=== PATIENT | female | born 1955 | race Caucasian/White ===

== ENCOUNTER → 2017-05-18 | Outpatient (CLI) | payer MEDICAID ==
[~2017-05-18] MED LIST: ALBU90AE INH; DIPH25CA61 PO; DIVA250T4 PO; GADOBUTROL 10 MMOL/10 ML VIAL ONE; LORA10TA72 PO; OXYB5TAB7 PO; SULF1TAB24 PO
== END | disposition home or self-care (01) ==
LOC: CFH 07:05
PROVIDERS: ATTEND Urology
DX: N28.1 Cyst of kidney, acquired (principal); C67.9 Malignant neoplasm of bladder, unspecified
CPT/HCPCS: 72197; 74183; A9585

== ENCOUNTER 2017-09-28 16:17 | Inpatient (IN) | payer MEDICAID ==
[~2017-09-28] VITALS: Ht 162.6 cm; Wt 75.0 kg
[~2017-09-28 16:17] MED LIST changes: -GADOBUTROL 10 MMOL/10 ML VIAL ONE
[2017-09-28] MEDS ORDERED: SODIUM CHLORIDE 0.9% 1,000ML IVBOLUS ONE (17:00)
[2017-09-28 17:04] LABS: BASOPHILS # (AUTO) 0.05 x10^3/uL (0-0.1); BASOPHILS % (AUTO) 1 % (0-1); EOSINOPHILS # (AUTO) 0.06 x10^3/uL (0-0.4); EOSINOPHILS % (AUTO) 1 % (1-7); LYMPHOCYTES % (AUTO) 20 % (22-44); MD NO; MEAN CORPUSCULAR HEMOGLOBIN 31.8 pg (27.0-34.8); MEAN CORPUSCULAR HGB CONC 33.5 g/dL (32.4-35.8); MEAN PLATELET VOLUME 8.8 fL (7.4-10.4); MONOCYTES # (AUTO) 0.62 x10^3/uL (0.2-0.8); MONOCYTES % (AUTO) 5 % (2-9); NEUTROPHILS # (AUTO) 8.59 x10^3/uL (1.8-6.8); NEUTROPHILS % (AUTO) 74 % (42-75); PLATELET COUNT 352 x10^3/uL (130-400); RED BLOOD COUNT 4.15 x10^6/uL (3.82-5.3); RED CELL DISTRIBUTION WIDTH 14.4 % (9.6-15.2)
[2017-09-28] MEDS ORDERED: MULT-516 PO (17:10)
[2017-09-28] MEDS ORDERED: QUET200T4 PO (17:10)
[2017-09-28] MEDS ORDERED: DIVA500T4 PO (17:10)
[2017-09-28] MEDS ORDERED: ARIP400S3 IM (17:10)
[2017-09-28] MEDS ORDERED: CHOL100012 PO (17:10)
[2017-09-28] MEDS ORDERED: FLUT1DIS3 INH (17:10)
[2017-09-28 17:13] LABS: ALANINE AMINOTRANSFERASE 24 U/L (12-78); ALBUMIN 3.5 g/dL (3.4-5.0); ANION GAP 9 mmol/L (5-15); CALCIUM 8.9 mg/dL (8.5-10.1); CHLORIDE 106 mmol/L (98-107); SALICYLATE LEVEL 6.4 mg/dL (2.8-20.0)
[2017-09-28 17:17] LABS: ALKALINE PHOSPHATASE 63 U/L (45-117); BILIRUBIN,TOTAL 0.3 mg/dL (0.2-1.0); TOTAL PROTEIN 7.1 g/dL (6.4-8.2)
[2017-09-28 17:21] LABS: ACETAMINOPHEN < 2 mcg/mL (10-30)
[2017-09-28 17:28] LABS: AMPHETAMINE SCREEN, URINE Negative (Negative); BARBITURATE SCREEN, URINE Negative (Negative); BENZODIAZEPINE SCREEN, URINE Negative (Negative); CANNABINOID SCREEN, URINE Negative (Negative); COCAINE SCREEN, URINE Negative (Negative); METHADONE SCREEN, URINE Negative (Negative); OPIATE SCREEN, URINE Negative (Negative)
[2017-09-28] MEDS ORDERED: POTASSIUM CHLORIDE 20 MEQ TAB.ER.PRT PO ONE (17:30)
[2017-09-28] MEDS ORDERED: POTASSIUM CHLORIDE 20 MEQ TAB.ER.PRT ONE (17:57)
[2017-09-28] MEDS ORDERED: MAGNESIUM SULFATE PMX 2GM/50ML 50 ML IV ONE (18:00)
[2017-09-28] MEDS ORDERED: POTASSIUM CHLORIDE 40 MEQ in SODIUM CHLORIDE 0.9% 500 ML IV ONE (18:00)
[2017-09-28 21:20] VITALS: BP 125/76
[2017-09-28] MEDS: POTASSIUM CHLORIDE 20 MEQ TAB.ER.PRT PO SCH (22:06)
[2017-09-28] MEDS: TRAZODONE 100MG TABLET PO SCH (22:06)
[2017-09-29 01:19] VITALS: BP 101/66
[2017-09-29] MEDS: POTASSIUM CHLORIDE 20 MEQ TAB.ER.PRT PO SCH (01:50)
[2017-09-29 07:13] LABS: ANION GAP 6 mmol/L (5-15); CALCIUM 8.1 mg/dL (8.5-10.1); CHLORIDE 114 mmol/L (98-107); CREATININE 0.65 mg/dL (0.55-1.02)
[2017-09-29 07:27] VITALS: BP 116/76
[2017-09-29 12:02] VITALS: BP 132/84
[2017-09-29 18:30] VITALS: BP 129/84
[2017-09-29] MEDS: TRAZODONE 100MG TABLET PO SCH (20:58)
[2017-09-29 22:20] VITALS: BP 154/91
[2017-09-29 22:21] VITALS: BP 154/91
[2017-09-29] MEDS: QUETIAPINE 200 MG TABLET PO SCH (22:51)
[2017-09-29] MEDS: DIVALPROEX 500 MG TAB.ER.24H PO SCH (22:51)
[2017-09-30 07:57] VITALS: BP 135/83
[2017-09-30] MEDS: NICOTINE 14MG/24 HR PATCH.TD24 TD SCH (17:00)
[2017-09-30 19:46] VITALS: BP 163/94
[2017-09-30] MEDS: ACETAMINOPHEN 325 MG TABLET PO PRN (20:00)
[2017-09-30] MEDS: QUETIAPINE 200 MG TABLET PO SCH (20:01)
[2017-09-30] MEDS: TRAZODONE 100MG TABLET PO SCH ×2 (20:01→20:03)
[2017-09-30] MEDS: DIVALPROEX 500 MG TAB.ER.24H PO SCH (20:02)
[2017-09-30 20:14] VITALS: BP 157/85
[2017-10-01 07:34] VITALS: BP 155/96
[2017-10-01] MEDS: NICOTINE 14MG/24 HR PATCH.TD24 TD SCH (17:15)
[2017-10-01 20:16] VITALS: BP 174/94
[2017-10-01] MEDS: TRAZODONE 100MG TABLET PO SCH (20:33)
[2017-10-01] MEDS: QUETIAPINE 200 MG TABLET PO SCH (20:34)
[2017-10-01] MEDS: DIVALPROEX 500 MG TAB.ER.24H PO SCH (20:34)
[2017-10-01 20:43] VITALS: BP 158/90
[2017-10-02] MEDS: ACETAMINOPHEN 325 MG TABLET PO PRN (01:48)
[2017-10-02 07:53] VITALS: BP 132/83
[2017-10-02] MEDS: GUAIFENESIN/DM 200-20MG, 10ML UDC PO PRN ×2 (12:24→20:25)
[2017-10-02] MEDS: LORazepam 0.5MG TABLET PO PRN ×2 (15:22→21:32)
[2017-10-02] MEDS: BENZONATATE 100 MG CAPSULE PO PRN (15:23)
[2017-10-02] MEDS: NICOTINE 14MG/24 HR PATCH.TD24 TD SCH (17:16)
[2017-10-02 19:26] VITALS: BP 148/86
[2017-10-02] MEDS: TRAZODONE 100MG TABLET PO SCH (20:25)
[2017-10-02] MEDS: QUETIAPINE 200 MG TABLET PO SCH (20:25)
[2017-10-02] MEDS: DIVALPROEX 500 MG TAB.ER.24H PO SCH (20:25)
[2017-10-03 08:50] VITALS: BP 132/79
[2017-10-03] MEDS: GUAIFENESIN/DM 200-20MG, 10ML UDC PO PRN ×2 (10:02→22:56)
[2017-10-03] MEDS: ONDANSETRON ODT 4 MG PO PRN ×3 (11:21→21:53)
[2017-10-03] MEDS: ACETAMINOPHEN 325 MG TABLET PO PRN ×2 (16:11→21:16)
[2017-10-03] MEDS: NICOTINE 14MG/24 HR PATCH.TD24 TD SCH (16:47)
[2017-10-03 19:37] VITALS: BP 168/100
[2017-10-03] MEDS: TRAZODONE 100MG TABLET PO SCH (21:16)
[2017-10-03] MEDS: QUETIAPINE 200 MG TABLET PO SCH (21:16)
[2017-10-03] MEDS: DIVALPROEX 500 MG TAB.ER.24H PO SCH (21:17)
[2017-10-03] MEDS: LORazepam 0.5MG TABLET PO PRN (22:56)
[2017-10-04 07:40] VITALS: BP 127/89
[2017-10-04] MEDS: LORazepam 0.5MG TABLET PO PRN ×2 (12:36→16:51)
[2017-10-04] MEDS: GUAIFENESIN/DM 200-20MG, 10ML UDC PO PRN ×2 (12:36→21:39)
[2017-10-04] MEDS: NICOTINE 14MG/24 HR PATCH.TD24 TD SCH (16:51)
[2017-10-04 20:17] VITALS: BP 159/83
[2017-10-04] MEDS: TRAZODONE 100MG TABLET PO SCH (21:38)
[2017-10-04] MEDS: QUETIAPINE 200 MG TABLET PO SCH (21:38)
[2017-10-04] MEDS: DIVALPROEX 500 MG TAB.ER.24H PO SCH (21:38)
[2017-10-05 07:16] VITALS: BP 130/79
[2017-10-05] MEDS: IBUPROFEN 200 MG TABLET PO PRN ×3 (07:54→17:26)
[2017-10-05] MEDS: GUAIFENESIN/DM 200-20MG, 10ML UDC PO PRN ×2 (09:02→20:45)
[2017-10-05] MEDS: BENZONATATE 100 MG CAPSULE PO PRN ×2 (09:02→18:27)
[2017-10-05] MEDS: LORazepam 0.5MG TABLET PO PRN ×2 (09:09→18:16)
[2017-10-05] MEDS: NICOTINE 14MG/24 HR PATCH.TD24 TD SCH (17:00)
[2017-10-05] MEDS: ONDANSETRON ODT 4 MG PO PRN (18:27)
[2017-10-05 19:02] VITALS: BP 158/84
[2017-10-05] MEDS: DIVALPROEX 500 MG TAB.ER.24H PO SCH (20:45)
[2017-10-05] MEDS: QUETIAPINE 200 MG TABLET PO SCH (20:45)
[2017-10-05] MEDS: TRAZODONE 100MG TABLET PO SCH (20:45)
[2017-10-06] MEDS: IBUPROFEN 200 MG TABLET PO PRN ×2 (01:42→08:26)
[2017-10-06] MEDS: LORazepam 0.5MG TABLET PO PRN ×4 (01:42→22:17)
[2017-10-06 07:31] VITALS: BP 151/84
[2017-10-06] MEDS: GUAIFENESIN/DM 200-20MG, 10ML UDC PO PRN ×3 (08:26→20:09)
[2017-10-06] MEDS: NICOTINE 14MG/24 HR PATCH.TD24 TD SCH (17:30)
[2017-10-06] MEDS: ONDANSETRON ODT 4 MG PO PRN (18:08)
[2017-10-06 19:26] VITALS: BP 135/82
[2017-10-06] MEDS: DIVALPROEX 500 MG TAB.ER.24H PO SCH ×2 (20:05→21:45)
[2017-10-06] MEDS: QUETIAPINE 200 MG TABLET PO SCH (20:05)
[2017-10-06] MEDS: TRAZODONE 100MG TABLET PO SCH (20:05)
[2017-10-07] MEDS: GUAIFENESIN/DM 200-20MG, 10ML UDC PO PRN ×3 (04:17→20:02)
[2017-10-07 07:36] VITALS: BP 145/94
[2017-10-07] MEDS: ONDANSETRON ODT 4 MG PO PRN (10:40)
[2017-10-07] MEDS ORDERED: ARIPIPRAZOLE 400 MG INJ NC IM ONE (11:00)
[2017-10-07] MEDS: LORazepam 0.5MG TABLET PO PRN (13:23)
[2017-10-07] MEDS: IBUPROFEN 200 MG TABLET PO PRN ×2 (13:23→20:01)
[2017-10-07] MEDS: NICOTINE 14MG/24 HR PATCH.TD24 TD SCH (17:44)
[2017-10-07] MEDS: CARVEDILOL 3.125 MG TABLET PO SCH (18:11)
[2017-10-07 20:00] VITALS: BP 142/82
[2017-10-07] MEDS: TRAZODONE 100MG TABLET PO SCH (20:01)
[2017-10-07] MEDS: QUETIAPINE 200 MG TABLET PO SCH (20:01)
[2017-10-08 05:55] VITALS: BP 134/87
[2017-10-08] MEDS: CARVEDILOL 3.125 MG TABLET PO SCH (05:56)
[2017-10-08 07:34] VITALS: BP 158/90
[2017-10-08] MEDS: LORazepam 0.5MG TABLET PO PRN (08:02)
[2017-10-08] MEDS: GUAIFENESIN/DM 200-20MG, 10ML UDC PO PRN (08:02)
[2017-10-08] MEDS: IBUPROFEN 200 MG TABLET PO PRN (13:59)
[2017-10-08] MEDS ORDERED: CARVEDILOL 3.125 MG TABLET PO SCH (18:00)
== END 2017-10-08 15:00 | DRG 885 ==
LOC: ED 17:33 → EDIP 17:34 → ED 17:54 → 4NOR 21:00 → 3E 09-29 22:18
PROVIDERS: ADMIT Internal Medicine; ATTEND Internal Medicine
DX: F25.0 Schizoaffective disorder, bipolar type (principal); E86.0 Dehydration; F23 Brief psychotic disorder; E87.6 Hypokalemia; G47.30 Sleep apnea, unspecified; I10 Essential (primary) hypertension; J44.9 Chronic obstructive pulmonary disease, unspecified; Z88.8 Allergy status to other drugs, medicaments and biological substances; Z88.5 Allergy status to narcotic agent; Z91.041 Radiographic dye allergy status
CPT/HCPCS: 36415; 80048; 80053; 80307; 80329; 83735; 84703; 85025; 93005; 99285; J3480; Q0162; G0480; J3475; J7030; J7040

== ENCOUNTER 2017-11-12 13:25 | Observation (INO) | payer MEDICAID ==
[~2017-11-12] VITALS: Ht 170.2 cm; Wt 78.0 kg
[~2017-11-12 13:25] MED LIST changes: +ARIP400S3 IM; +CHOL100012 PO; +DIVA500T4 PO; +FLUT1DIS3 INH; +MULT-516 PO; +QUET200T4 PO
[2017-11-12 13:52] LABS: BASOPHILS # (AUTO) 0.08 x10^3/uL (0-0.1); BASOPHILS % (AUTO) 1 % (0-1); EOSINOPHILS # (AUTO) 0.34 x10^3/uL (0-0.4); EOSINOPHILS % (AUTO) 5 % (1-7); LYMPHOCYTES # (AUTO) 2.36 x10^3/uL (1-3.4); LYMPHOCYTES % (AUTO) 32 % (22-44); MD NO; MEAN CORPUSCULAR HEMOGLOBIN 32.7 pg (27.0-34.8); MEAN CORPUSCULAR HGB CONC 33.7 g/dL (32.4-35.8); MEAN CORPUSCULAR VOLUME 97.2 fL (80-100); MEAN PLATELET VOLUME 8.7 fL (7.4-10.4); MONOCYTES # (AUTO) 0.53 x10^3/uL (0.2-0.8); MONOCYTES % (AUTO) 7 % (2-9); NEUTROPHILS # (AUTO) 4.18 x10^3/uL (1.8-6.8); NEUTROPHILS % (AUTO) 56 % (42-75); PLATELET COUNT 338 x10^3/uL (130-400); RED BLOOD COUNT 3.81 x10^6/uL (3.82-5.3); RED CELL DISTRIBUTION WIDTH 15.4 % (9.6-15.2)
[2017-11-12 14:03] LABS: ALANINE AMINOTRANSFERASE 20 U/L (12-78); ALBUMIN 3.4 g/dL (3.4-5.0); ANION GAP 7 mmol/L (5-15); CALCIUM 8.2 mg/dL (8.5-10.1); CHLORIDE 109 mmol/L (98-107); SALICYLATE LEVEL 2.2 mg/dL (2.8-20.0)
[2017-11-12 14:06] LABS: ALKALINE PHOSPHATASE 60 U/L (45-117); BILIRUBIN,TOTAL 0.4 mg/dL (0.2-1.0); CREATININE 0.73 mg/dL (0.55-1.02); TOTAL PROTEIN 7.1 g/dL (6.4-8.2)
[2017-11-12 14:09] LABS: ACETAMINOPHEN < 2 mcg/mL (10-30)
[2017-11-12 14:14] LABS: AMPHETAMINE SCREEN, URINE Negative (Negative); BARBITURATE SCREEN, URINE Negative (Negative); BENZODIAZEPINE SCREEN, URINE Negative (Negative); CANNABINOID SCREEN, URINE Negative (Negative); COCAINE SCREEN, URINE Negative (Negative); METHADONE SCREEN, URINE Negative (Negative); OPIATE SCREEN, URINE Negative (Negative)
[2017-11-12] MEDS ORDERED: ZIPRASIDONE 20MG CAPSULE PO ONE (14:30)
[2017-11-12] MEDS ORDERED: ZIPRASIDONE 20MG CAPSULE ONE (14:40)
[2017-11-12] MEDS ORDERED: QUET400T4 PO (16:19)
[2017-11-12] MEDS ORDERED: QUET100T PO (16:19)
[2017-11-12] MEDS ORDERED: ALBU6.7H INH (16:19)
[2017-11-12] MEDS ORDERED: [UNRECOGNIZED DRUG - CODE] PO (16:19)
[2017-11-12] MEDS ORDERED: DIVA500T17 PO (16:19)
[2017-11-12] MEDS ORDERED: OMEP40CA6 PO (16:19)
[2017-11-12] MEDS ORDERED: CARV3.1212 PO (16:19)
[2017-11-12] MEDS ORDERED: DOCUSATE 100 MG CAPSULE PO PRN (17:00)
[2017-11-12] MEDS ORDERED: QUETIAPINE 100MG TABLET PO PRN (17:00)
[2017-11-12] MEDS: NICOTINE 7 MG/24 HR PATCH.TD24 TD SCH (17:00)
[2017-11-12] MEDS ORDERED: ALBUTEROL SULFATE 2.5 MG/3 ML NPPB SCH (17:00)
[2017-11-12] MEDS ORDERED: ONDANSETRON ODT 4 MG PO PRN (17:00)
[2017-11-12] MEDS ORDERED: ZIPRASIDONE 20 MG INJ IM PRN (18:00)
[2017-11-12] MEDS ORDERED: GUAIFENESIN ER 600 MG TABLET ONE (21:00)
[2017-11-12] MEDS: QUETIAPINE 100MG TABLET PO SCH (21:04)
[2017-11-12] MEDS: GUAIFENESIN ER 600 MG TABLET PO SCH (21:04)
[2017-11-12] MEDS: CARVEDILOL 3.125 MG TABLET PO SCH (21:04)
[2017-11-12] MEDS: DIVALPROEX 500 MG TAB.ER.24H PO SCH (21:05)
[2017-11-12] MEDS ORDERED: NICOTINE 7 MG/24 HR PATCH.TD24 ONE (21:07)
[2017-11-13] MEDS ORDERED: ALBUTEROL SULFATE 2.5 MG/3 ML NPPB PRN (01:00)
[2017-11-13 05:57] LABS: ANION GAP 3 mmol/L (5-15); CALCIUM 8.4 mg/dL (8.5-10.1); CHLORIDE 112 mmol/L (98-107); CREATININE 0.77 mg/dL (0.55-1.02)
[2017-11-13 06:08] LABS: FREE T4 (FREE THYROXINE) 0.82 ng/dL (0.76-1.46)
[2017-11-13] MEDS ORDERED: GUAIFENESIN ER 600 MG TABLET ONE ×2 (07:41→20:55)
[2017-11-13] MEDS ORDERED: OMEPRAZOLE 20 MG CAPSULE.DR ONE (07:41)
[2017-11-13] MEDS: OMEPRAZOLE 20 MG CAPSULE.DR PO SCH (07:42)
[2017-11-13] MEDS: GUAIFENESIN ER 600 MG TABLET PO SCH ×2 (07:42→21:30)
[2017-11-13] MEDS: DIVALPROEX 500 MG TAB.ER.24H PO SCH ×2 (07:42→21:30)
[2017-11-13] MEDS: CARVEDILOL 3.125 MG TABLET PO SCH ×2 (07:42→21:30)
[2017-11-13] MEDS: FLUTICASONE/VILANTEROL 100-25MCG/INH INH SCH (07:42)
[2017-11-13] MEDS ORDERED: NICOTINE 7 MG/24 HR PATCH.TD24 ONE (18:23)
[2017-11-13] MEDS: NICOTINE 7 MG/24 HR PATCH.TD24 TD SCH (18:29)
[2017-11-13] MEDS ORDERED: CARVEDILOL 3.125 MG TABLET ONE (20:55)
[2017-11-13] MEDS ORDERED: QUETIAPINE 100MG TABLET ONE (20:55)
[2017-11-13] MEDS: QUETIAPINE 100MG TABLET PO SCH (21:30)
[2017-11-14] MEDS ORDERED: GUAIFENESIN ER 600 MG TABLET ONE (07:50)
[2017-11-14] MEDS ORDERED: OMEPRAZOLE 20 MG CAPSULE.DR ONE (07:50)
[2017-11-14] MEDS ORDERED: CARVEDILOL 3.125 MG TABLET ONE (07:50)
[2017-11-14] MEDS: GUAIFENESIN ER 600 MG TABLET PO SCH ×2 (08:00→21:12)
[2017-11-14] MEDS: OMEPRAZOLE 20 MG CAPSULE.DR PO SCH (08:00)
[2017-11-14] MEDS: CARVEDILOL 3.125 MG TABLET PO SCH ×2 (08:01→21:11)
[2017-11-14] MEDS: DIVALPROEX 500 MG TAB.ER.24H PO SCH ×2 (08:04→21:11)
[2017-11-14] MEDS: FLUTICASONE/VILANTEROL 100-25MCG/INH INH SCH (08:13)
[2017-11-14 19:49] VITALS: BP 128/55
[2017-11-14] MEDS: QUETIAPINE 100MG TABLET PO SCH (21:12)
[2017-11-14] MEDS: NICOTINE 7 MG/24 HR PATCH.TD24 TD SCH (21:12)
[2017-11-15 07:50] VITALS: BP 140/82
[2017-11-15] MEDS: OMEPRAZOLE 20 MG CAPSULE.DR PO SCH (08:19)
[2017-11-15] MEDS: CARVEDILOL 3.125 MG TABLET PO SCH ×2 (08:19→21:33)
[2017-11-15] MEDS: GUAIFENESIN ER 600 MG TABLET PO SCH ×2 (08:19→21:33)
[2017-11-15] MEDS: DIVALPROEX 500 MG TAB.ER.24H PO SCH ×2 (08:19→21:32)
[2017-11-15 10:54] LABS: MICROSCOPIC INDICATED
[2017-11-15] MEDS: FLUTICASONE/VILANTEROL 100-25MCG/INH INH SCH (11:03)
[2017-11-15] MEDS: ACETAMINOPHEN 325 MG TABLET PO PRN (13:19)
[2017-11-15] MEDS: NICOTINE 7 MG/24 HR PATCH.TD24 TD SCH (16:25)
[2017-11-15 20:15] VITALS: BP 141/83
[2017-11-15] MEDS: QUETIAPINE 100MG TABLET PO SCH (21:33)
[2017-11-16 07:45] VITALS: BP 133/84
[2017-11-16] MEDS: FLUTICASONE/VILANTEROL 100-25MCG/INH INH SCH (09:44)
[2017-11-16] MEDS: CARVEDILOL 3.125 MG TABLET PO SCH ×2 (09:45→21:14)
[2017-11-16] MEDS: GUAIFENESIN ER 600 MG TABLET PO SCH ×2 (09:46→21:14)
[2017-11-16] MEDS: DIVALPROEX 500 MG TAB.ER.24H PO SCH ×3 (09:46→21:14)
[2017-11-16] MEDS: OMEPRAZOLE 20 MG CAPSULE.DR PO SCH (09:47)
[2017-11-16] MEDS: NICOTINE 7 MG/24 HR PATCH.TD24 TD SCH (16:35)
[2017-11-16 19:53] VITALS: BP 149/85
[2017-11-16] MEDS: QUETIAPINE 100MG TABLET PO SCH (21:15)
[2017-11-17] MEDS: ACETAMINOPHEN 325 MG TABLET PO PRN (05:39)
[2017-11-17 07:40] VITALS: BP 146/86
[2017-11-17] MEDS: OMEPRAZOLE 20 MG CAPSULE.DR PO SCH (08:42)
[2017-11-17] MEDS: CARVEDILOL 3.125 MG TABLET PO SCH ×2 (08:42→20:51)
[2017-11-17] MEDS: FLUTICASONE/VILANTEROL 100-25MCG/INH INH SCH (08:42)
[2017-11-17] MEDS: DIVALPROEX 500 MG TAB.ER.24H PO SCH ×3 (08:42→20:51)
[2017-11-17] MEDS: GUAIFENESIN ER 600 MG TABLET PO SCH ×2 (08:42→20:51)
[2017-11-17] MEDS: QUETIAPINE 100MG TABLET PO PRN (12:42)
[2017-11-17] MEDS: NICOTINE 7 MG/24 HR PATCH.TD24 TD SCH (17:08)
[2017-11-17 19:37] VITALS: BP 140/82
[2017-11-17] MEDS: QUETIAPINE 100MG TABLET PO SCH (20:51)
[2017-11-18] MEDS: QUETIAPINE 100MG TABLET PO PRN (04:04)
[2017-11-18 07:43] VITALS: BP 139/84
[2017-11-18 07:47] VITALS: BP 139/84
[2017-11-18] MEDS: GUAIFENESIN ER 600 MG TABLET PO SCH ×2 (08:34→21:14)
[2017-11-18] MEDS: OMEPRAZOLE 20 MG CAPSULE.DR PO SCH (08:34)
[2017-11-18] MEDS: DIVALPROEX 500 MG TAB.ER.24H PO SCH ×3 (08:34→21:15)
[2017-11-18] MEDS: CARVEDILOL 3.125 MG TABLET PO SCH ×2 (08:35→21:15)
[2017-11-18] MEDS: FLUTICASONE/VILANTEROL 100-25MCG/INH INH SCH (08:37)
[2017-11-18] MEDS: NICOTINE 7 MG/24 HR PATCH.TD24 TD SCH (16:51)
[2017-11-18 19:42] VITALS: BP 138/84
[2017-11-18] MEDS: QUETIAPINE 100MG TABLET PO SCH (21:14)
[2017-11-19 07:45] VITALS: BP 133/75
[2017-11-19] MEDS: CARVEDILOL 3.125 MG TABLET PO SCH ×2 (08:45→21:04)
[2017-11-19] MEDS: DIVALPROEX 500 MG TAB.ER.24H PO SCH ×3 (08:45→21:04)
[2017-11-19] MEDS: GUAIFENESIN ER 600 MG TABLET PO SCH ×2 (08:45→21:04)
[2017-11-19] MEDS: OMEPRAZOLE 20 MG CAPSULE.DR PO SCH (08:45)
[2017-11-19] MEDS: FLUTICASONE/VILANTEROL 100-25MCG/INH INH SCH (08:47)
[2017-11-19] MEDS: NICOTINE 7 MG/24 HR PATCH.TD24 TD SCH (16:21)
[2017-11-19 20:06] VITALS: BP 130/73
[2017-11-19] MEDS: QUETIAPINE 100MG TABLET PO SCH (21:05)
[2017-11-20 08:35] VITALS: BP 108/67
[2017-11-20] MEDS: DIVALPROEX 500 MG TAB.ER.24H PO SCH ×3 (08:52→20:25)
[2017-11-20] MEDS: GUAIFENESIN ER 600 MG TABLET PO SCH ×2 (08:52→20:25)
[2017-11-20] MEDS: FLUTICASONE/VILANTEROL 100-25MCG/INH INH SCH (08:52)
[2017-11-20] MEDS: OMEPRAZOLE 20 MG CAPSULE.DR PO SCH (08:52)
[2017-11-20] MEDS: CARVEDILOL 3.125 MG TABLET PO SCH ×2 (08:54→20:25)
[2017-11-20] MEDS: NICOTINE 7 MG/24 HR PATCH.TD24 TD SCH (17:03)
[2017-11-20 19:50] VITALS: BP 137/75
[2017-11-20] MEDS: QUETIAPINE 100MG TABLET PO SCH (20:26)
[2017-11-21 07:43] VITALS: BP 129/79
[2017-11-21] MEDS: FLUTICASONE/VILANTEROL 100-25MCG/INH INH SCH (08:26)
[2017-11-21] MEDS: DIVALPROEX 500 MG TAB.ER.24H PO SCH ×3 (08:27→20:48)
[2017-11-21] MEDS: CARVEDILOL 3.125 MG TABLET PO SCH ×2 (08:27→20:48)
[2017-11-21] MEDS: OMEPRAZOLE 20 MG CAPSULE.DR PO SCH (08:27)
[2017-11-21] MEDS: GUAIFENESIN ER 600 MG TABLET PO SCH ×2 (08:27→20:48)
[2017-11-21] MEDS: LORATADINE 10 MG TABLET PO SCH (10:56)
[2017-11-21] MEDS: NICOTINE 7 MG/24 HR PATCH.TD24 TD SCH (16:17)
[2017-11-21 19:44] VITALS: BP 119/75
[2017-11-21] MEDS: QUETIAPINE 100MG TABLET PO SCH (20:49)
[2017-11-22 07:42] VITALS: BP 137/77
[2017-11-22] MEDS: DIVALPROEX 500 MG TAB.ER.24H PO SCH ×3 (08:28→20:35)
[2017-11-22] MEDS: OMEPRAZOLE 20 MG CAPSULE.DR PO SCH (08:28)
[2017-11-22] MEDS: GUAIFENESIN ER 600 MG TABLET PO SCH ×2 (08:28→20:35)
[2017-11-22] MEDS: CARVEDILOL 3.125 MG TABLET PO SCH ×2 (08:28→20:35)
[2017-11-22] MEDS: FLUTICASONE/VILANTEROL 100-25MCG/INH INH SCH (08:28)
[2017-11-22] MEDS: LORATADINE 10 MG TABLET PO SCH (08:30)
[2017-11-22] MEDS: ARTIFICIAL TEARS OINT 3.5 GM EACHEYE PRN (12:31)
[2017-11-22] MEDS: NICOTINE 7 MG/24 HR PATCH.TD24 TD SCH (15:48)
[2017-11-22] MEDS: ACETAMINOPHEN 325 MG TABLET PO PRN (19:30)
[2017-11-22 19:41] VITALS: BP 135/86
[2017-11-22] MEDS: QUETIAPINE 100MG TABLET PO SCH (20:36)
[2017-11-23 07:38] VITALS: BP 126/81
[2017-11-23] MEDS: CARVEDILOL 3.125 MG TABLET PO SCH ×2 (08:21→20:29)
[2017-11-23] MEDS: FLUTICASONE/VILANTEROL 100-25MCG/INH INH SCH (08:21)
[2017-11-23] MEDS: DIVALPROEX 500 MG TAB.ER.24H PO SCH ×3 (08:21→20:29)
[2017-11-23] MEDS: OMEPRAZOLE 20 MG CAPSULE.DR PO SCH (08:22)
[2017-11-23] MEDS: GUAIFENESIN ER 600 MG TABLET PO SCH ×2 (08:22→20:29)
[2017-11-23] MEDS: LORATADINE 10 MG TABLET PO SCH (08:22)
[2017-11-23] MEDS: NICOTINE 7 MG/24 HR PATCH.TD24 TD SCH (16:06)
[2017-11-23] MEDS: ARTIFICIAL TEARS OINT 3.5 GM EACHEYE PRN (16:07)
[2017-11-23 19:41] VITALS: BP 147/78
[2017-11-23] MEDS: QUETIAPINE 100MG TABLET PO SCH (20:29)
[2017-11-24] MEDS: ACETAMINOPHEN 325 MG TABLET PO PRN (01:20)
[2017-11-24 07:40] VITALS: BP 125/85
[2017-11-24] MEDS: FLUTICASONE/VILANTEROL 100-25MCG/INH INH SCH (08:50)
[2017-11-24] MEDS: DIVALPROEX 500 MG TAB.ER.24H PO SCH (08:50)
[2017-11-24] MEDS: CARVEDILOL 3.125 MG TABLET PO SCH (08:51)
[2017-11-24] MEDS: LORATADINE 10 MG TABLET PO SCH (08:51)
[2017-11-24] MEDS: GUAIFENESIN ER 600 MG TABLET PO SCH (08:51)
[2017-11-24] MEDS: OMEPRAZOLE 20 MG CAPSULE.DR PO SCH (08:51)
[2017-11-24] MEDS: ARTIFICIAL TEARS OINT 3.5 GM EACHEYE PRN (09:24)
== END 2017-11-24 12:14 ==
LOC: ED 16:35 → EDIP 16:36 → ED 16:36 → 3E 11-14 17:23
PROVIDERS: ADMIT Hospitalist; ATTEND Internal Medicine
DX: F31.9 Bipolar disorder, unspecified (principal); F12.90 Cannabis use, unspecified, uncomplicated; M32.9 Systemic lupus erythematosus, unspecified; I10 Essential (primary) hypertension; J44.9 Chronic obstructive pulmonary disease, unspecified; F25.9 Schizoaffective disorder, unspecified; F17.210 Nicotine dependence, cigarettes, uncomplicated
CPT/HCPCS: 36415; 80048; 80053; 80164; 80307; 80329; 81001; 84439; 84443; 85025; 93005; 99285; G0378; G0480

== ENCOUNTER 2018-07-12 16:49 | Emergency (ER) | payer MEDICAID ==
[~2018-07-12] VITALS: Ht 162.6 cm; Wt 70.0 kg
[~2018-07-12 16:49] MED LIST changes: +ALBU6.7H INH; +CARV3.1212 PO; +DIVA500T17 PO; +OMEP40CA6 PO; +QUET100T PO; +QUET400T4 PO; +[UNRECOGNIZED DRUG - CODE] PO
[2018-07-12] MEDS ORDERED: SODIUM CHLORIDE FLUSH 10ML SYR IVF ONE (17:00)
[2018-07-12] MEDS ORDERED: PLEASE ENTER HEIGHT AND WEIGHT MC SCH (17:30)
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
[2018-07-12 17:41] LABS: BASOPHILS # (AUTO) 0.12 x10^3/uL (0-0.1); BASOPHILS % (AUTO) 1 % (0-1); EOSINOPHILS # (AUTO) 0.33 x10^3/uL (0-0.4); EOSINOPHILS % (AUTO) 3 % (1-7); LYMPHOCYTES # (AUTO) 3.24 x10^3/uL (1-3.4); LYMPHOCYTES % (AUTO) 28 % (22-44); MD NO; MEAN CORPUSCULAR HEMOGLOBIN 32.7 pg (27.0-34.8); MEAN CORPUSCULAR HGB CONC 33.6 g/dL (32.4-35.8); MEAN CORPUSCULAR VOLUME 97.3 fL (80-100); MEAN PLATELET VOLUME 9.3 fL (7.4-10.4); MONOCYTES # (AUTO) 0.65 x10^3/uL (0.2-0.8); MONOCYTES % (AUTO) 6 % (2-9); NEUTROPHILS # (AUTO) 7.19 x10^3/uL (1.8-6.8); NEUTROPHILS % (AUTO) 62 % (42-75); PLATELET COUNT 309 x10^3/uL (130-400); RED BLOOD COUNT 4.78 x10^6/uL (3.82-5.3)
[2018-07-12 17:48] LABS: ALBUMIN 3.9 g/dL (3.4-5.0); ANION GAP 6 mmol/L (5-15); CALCIUM 9.1 mg/dL (8.5-10.1); CHLORIDE 107 mmol/L (98-107)
[2018-07-12 17:53] LABS: CREATININE 0.85 mg/dL (0.55-1.02); TROPONIN I < 0.015 ng/mL (0.000-0.045)
[2018-07-12 17:54] LABS: CREATINE KINASE, TOTAL 106 U/L (26-192)
[2018-07-12] MEDS ORDERED: LORazepam 1MG TABLET ONE (18:30)
[2018-07-12] MEDS ORDERED: LORazepam 1MG TABLET PO ONE (18:30)
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
--- NOTE | 2018-07-12 18:43 | NUR ---
PT HAS REMAINED AND A/OX 4 WITHOUT DISTRESS. TOLERATING PO FLUIDS.
[2018-07-12 18:55] VITALS: BP_DIAS 87
--- NOTE | 2018-07-12 19:08 | NUR ---
SBAR RPT FROM R[facility]HAO AND ASSUMED PT CARE. PT VSS, CONTINUE TO MONITOR
[2018-07-12] MEDS ORDERED: ARIP400S3 SC (19:13)
[2018-07-12] MEDS ORDERED: DIPH25TA65 PO (19:13)
[2018-07-12 20:15] VITALS: BP_SYST 144
--- NOTE | 2018-07-12 20:16 | NUR ---
Patient/Caregiver given discharge instructions and they have confirmed that they understand the instructions. Patient ambulatory with steady gait. TAXI VOUCHER PROVIDED
== END 2018-07-12 20:17 | disposition home or self-care (01) ==
LOC: ED 16:58
DX: T75.4XXA Electrocution, initial encounter (principal); J44.9 Chronic obstructive pulmonary disease, unspecified; I10 Essential (primary) hypertension; W86.0XXA Exposure to domestic wiring and appliances, initial encounter; Y93.G3 Activity, cooking and baking; Y92.89 Other specified places as the place of occurrence of the external cause; Y99.9 Unspecified external cause status
CPT/HCPCS: 36415; 71045; 80048; 82040; 82550; 84484; 85025; 93005; 99284

== ENCOUNTER 2018-10-03 14:07 | Emergency (ER) | payer MEDICAID ==
[~2018-10-03] VITALS: Ht 162.6 cm; Wt 68.4 kg
[~2018-10-03 14:07] MED LIST changes: +ARIP400S3 SC; +DIPH25TA65 PO
[2018-10-03 14:29] VITALS: BP 161/95
--- NOTE | 2018-10-03 14:49 | NUR ---
PT PRESENTING TO ER FOR DEPRESSION WORSENING OVER 1 WK. PT STATES RECENTLY HURT ARM AND NEEDS SX, TAKING PAIN MEDICATION THAT ALSO MIGHT BE CAUSING DEPRESSION. WHEN ASKED IF SHE FELT UNSAFE OR THAT SHE MIGHT HURT SELF PT STATES NO BUT KNOWS SHE DOESNT FEEL RIGHT. PT DENIES SI AND STATES DOESNT FEEL SHE NEEDS TO BE ON A HOLD. TAKING PSYCH MEDS PRESCRIBED. LABS COLLECTED. PT CURRENTLY UP TO RESTROOM FOR SAMPLE COLLECTION. AWAITING TEST RESULTS AND DISPO AT THIS TIME
[2018-10-03 14:53] LABS: BASOPHILS # (AUTO) 0.23 x10^3/uL (0-0.1); BASOPHILS % (AUTO) 2 % (0-1); EOSINOPHILS # (AUTO) 0.33 x10^3/uL (0-0.4); EOSINOPHILS % (AUTO) 3 % (1-7); LYMPHOCYTES # (AUTO) 3.33 x10^3/uL (1-3.4); LYMPHOCYTES % (AUTO) 33 % (22-44); MD NO; MEAN CORPUSCULAR HEMOGLOBIN 31.9 pg (27.0-34.8); MEAN CORPUSCULAR HGB CONC 33.5 g/dL (32.4-35.8); MEAN CORPUSCULAR VOLUME 95.3 fL (80-100); MEAN PLATELET VOLUME 8.6 fL (7.4-10.4); MONOCYTES # (AUTO) 0.57 x10^3/uL (0.2-0.8); MONOCYTES % (AUTO) 6 % (2-9); NEUTROPHILS # (AUTO) 5.58 x10^3/uL (1.8-6.8); NEUTROPHILS % (AUTO) 56 % (42-75); PLATELET COUNT 350 x10^3/uL (130-400); RED CELL DISTRIBUTION WIDTH 14.4 % (9.6-15.2)
[2018-10-03 15:02] LABS: ALBUMIN 4.1 g/dL (3.4-5.0); ANION GAP 6 mmol/L (5-15); CALCIUM 9.4 mg/dL (8.5-10.1); CHLORIDE 107 mmol/L (98-107)
[2018-10-03 15:05] LABS: ALANINE AMINOTRANSFERASE 24 U/L (12-78); ALKALINE PHOSPHATASE 107 U/L (45-117); BILIRUBIN,TOTAL 0.4 mg/dL (0.2-1.0); CREATININE 0.73 mg/dL (0.55-1.02); SALICYLATE LEVEL 5.7 mg/dL (2.8-20.0); TOTAL PROTEIN 7.7 g/dL (6.4-8.2)
[2018-10-03 15:06] LABS: ACETAMINOPHEN < 2 mcg/mL (10-30)
[2018-10-03 15:28] LABS: AMPHETAMINE SCREEN, URINE Negative (Negative); BARBITURATE SCREEN, URINE Negative (Negative); BENZODIAZEPINE SCREEN, URINE Negative (Negative); CANNABINOID SCREEN, URINE Negative (Negative); COCAINE SCREEN, URINE Negative (Negative); METHADONE SCREEN, URINE Negative (Negative); OPIATE SCREEN, URINE Positive (Negative)
--- NOTE | 2018-10-03 15:50 | NUR ---
ALL RESULTS BACK AT THIS TIME, CHART UP FOR RECHECK
--- NOTE | 2018-10-03 16:24 | NUR ---
PT RECHECKED, ASKED IF SHE FELT SAFE TO GO HOME OR IF SHE WOULD TRY TO HURT HERSELF. PT STATES SHE CANT PROMISE SHE WOULDNT TAKE ALL OF HER MEDICATION AND OD IF SHE WAS TO BE RELEASED. MD NOTIFIED OF CONVERSATION WITH PT.
--- NOTE | 2018-10-03 16:25 | NUR ---
PT BEING PLACED ON LEGAL HOLD. ROOM LOCKED DOWN AND SECURED, PT COMPLETELY UNDRESSED, 1 BAG OF BELONGINGS CONTAINING PURSE, PHONE AND CLOTHING LABLED AND PLACED IN LOCKER. SITTER IN [place] FOR CONTINUOUS MONITORING.
[2018-10-03] MEDS ORDERED: LORazepam 1MG TABLET PO ONE (16:30)
[2018-10-03] MEDS ORDERED: LORazepam 1MG TABLET ONE (16:39)
--- NOTE | 2018-10-03 17:10 | NUR ---
RAD COMPLETED, AWAITING RESULTS AND RECHECK
--- NOTE | 2018-10-03 17:36 | NUR ---
PACKET FAXED TO [facility], [facility]
--- NOTE | 2018-10-03 17:48 | NUR ---
FOOD TRAY DELIVERED AND GIVEN TO PT. SITTER IN [place] FOR CONTINUOUS MONITORING
--- NOTE | 2018-10-03 19:04 | NUR ---
PT RESTING IN BED, NADN. WATCHING TV. FLUIDS AT BEDSIDE. ALL NEEDS MET AT THIS TIME. SITTER IN [place] FOR CONTINUOUS MONITORING.
--- NOTE | 2018-10-03 21:00 | NUR ---
REPORT GIVEN TO LAY MIRANDA ON 3E PT READY FOR TRANSFER
[2018-10-03 21:22] LABS: MICROSCOPIC AUTO
[2018-10-03 21:23] LABS: CULTURE INDICATED? YES
== END 2018-10-03 21:36 | disposition short-term general hospital (02) ==
LOC: ED 17:25
DX: F32.9 Major depressive disorder, single episode, unspecified (principal); R45.851 Suicidal ideations; I10 Essential (primary) hypertension; F10.10 Alcohol abuse, uncomplicated; Y90.9 Presence of alcohol in blood, level not specified
CPT/HCPCS: 36415; 80053; 80307; 80329; 81001; 84443; 85025; 87086; 99285; G0480

== ENCOUNTER 2018-10-03 19:24 | Inpatient (IN) | payer MEDICAID ==
[~2018-10-03] VITALS: Ht 162.6 cm; Wt 67.7 kg
[2018-10-03] MEDS ORDERED: DOCUSATE 100 MG CAPSULE PO PRN (21:00)
[2018-10-03] MEDS: QUETIAPINE 100MG TABLET PO SCH (22:22)
[2018-10-04] MEDS: ACETAMINOPHEN 325 MG TABLET PO PRN ×2 (03:29→11:21)
[2018-10-04 03:48] VITALS: BP 129/87
[2018-10-04 07:32] VITALS: BP 131/83
[2018-10-04] MEDS: TEMPLATE NON-FORMULARY MED. (Albuterol Sulfate (Proventil Hfa) 2 PUFF(S)) INH SCH ×4 (09:00→21:38)
[2018-10-04] MEDS: NICOTINE 7 MG/24 HR PATCH.TD24 TD SCH (11:21)
[2018-10-04 14:48] LABS: BASOPHILS # (AUTO) 0.06 x10^3/uL (0-0.1); BASOPHILS % (AUTO) 1 % (0-1); EOSINOPHILS # (AUTO) 0.31 x10^3/uL (0-0.4); EOSINOPHILS % (AUTO) 3 % (1-7); LYMPHOCYTES # (AUTO) 2.72 x10^3/uL (1-3.4); LYMPHOCYTES % (AUTO) 27 % (22-44); MD NO; MEAN CORPUSCULAR HGB CONC 33.2 g/dL (32.4-35.8); MEAN CORPUSCULAR VOLUME 96.4 fL (80-100); MEAN PLATELET VOLUME 8.9 fL (7.4-10.4); MONOCYTES # (AUTO) 0.63 x10^3/uL (0.2-0.8); MONOCYTES % (AUTO) 6 % (2-9); NEUTROPHILS # (AUTO) 6.54 x10^3/uL (1.8-6.8); NEUTROPHILS % (AUTO) 64 % (42-75); PLATELET COUNT 307 x10^3/uL (130-400); RED BLOOD COUNT 4.77 x10^6/uL (3.82-5.3); RED CELL DISTRIBUTION WIDTH 14.6 % (9.6-15.2)
[2018-10-04 14:55] LABS: ALANINE AMINOTRANSFERASE 31 U/L (12-78); ANION GAP 5 mmol/L (5-15); CHLORIDE 106 mmol/L (98-107)
[2018-10-04 15:02] LABS: ALBUMIN 3.8 g/dL (3.4-5.0); ALKALINE PHOSPHATASE 106 U/L (45-117); BILIRUBIN,TOTAL 0.5 mg/dL (0.2-1.0); CALCIUM 9.2 mg/dL (8.5-10.1); CHOL/HDL RATIO 5.1; CHOLESTEROL, TOTAL 213 mg/dL (140-239); CREATININE 0.79 mg/dL (0.55-1.02); HDL CHOL % 20 % (28-40); HDL CHOLESTEROL (DIRECT) 42 mg/dL (40-60); LDL CHOLESTEROL,CALCULATED 104 mg/dL (54-169); LDL/HDL RATIO 2.5 (0.5-3.0); TOTAL PROTEIN 7.4 g/dL (6.4-8.2); TRIGLYCERIDES 333 mg/dL (50-200); VLDL CHOLESTEROL 67 mg/dL (0-25)
[2018-10-04 20:10] VITALS: BP 142/84
[2018-10-04] MEDS: BUPRENORPHINE/NALOXONE 2-0.5MG SL SCH (21:38)
[2018-10-04] MEDS: QUETIAPINE 100MG TABLET PO SCH (21:38)
[2018-10-04] MEDS ORDERED: ALBUTEROL SULFATE 2.5 MG/3 ML ONE (22:20)
[2018-10-05] MEDS: TEMPLATE NON-FORMULARY MED. (Albuterol Sulfate (Proventil Hfa) 2 PUFF(S)) INH SCH ×2 (01:20→05:07)
[2018-10-05] MEDS: ACETAMINOPHEN 325 MG TABLET PO PRN (06:11)
[2018-10-05 07:00] LABS: CHOL/HDL RATIO 5.1; LDL/HDL RATIO 2.3 (0.5-3.0)
[2018-10-05 07:26] VITALS: BP 111/72
[2018-10-05] MEDS: BUPRENORPHINE/NALOXONE 2-0.5MG SL SCH ×2 (09:01→20:23)
[2018-10-05] MEDS: NICOTINE 7 MG/24 HR PATCH.TD24 TD SCH (11:40)
[2018-10-05 13:54] VITALS: BP 123/82
[2018-10-05] MEDS ORDERED: ONDANSETRON 4 MG TABLET ONE (14:04)
[2018-10-05] MEDS: ONDANSETRON ODT 4 MG PO PRN ×2 (14:05→20:45)
[2018-10-05 19:50] VITALS: BP 155/83
[2018-10-05] MEDS: QUETIAPINE 100MG TABLET PO SCH (20:23)
[2018-10-05] MEDS ORDERED: ALUMINUM/MAG/SIMETHICONE 30 ML UDC PO PRN (21:00)
[2018-10-06 07:12] VITALS: BP 112/74
[2018-10-06] MEDS: BUPRENORPHINE/NALOXONE 2-0.5MG SL SCH ×2 (09:30→20:16)
[2018-10-06] MEDS: NICOTINE 7 MG/24 HR PATCH.TD24 TD SCH (10:09)
[2018-10-06 19:45] VITALS: BP 163/80
[2018-10-06] MEDS: QUETIAPINE 100MG TABLET PO SCH (20:16)
[2018-10-06] MEDS: ALBUTEROL SULFATE 2.5 MG/3 ML NPPB PRN (20:30)
[2018-10-07 07:34] VITALS: BP 129/76
[2018-10-07] MEDS: BUPRENORPHINE/NALOXONE 2-0.5MG SL SCH ×2 (08:26→20:31)
[2018-10-07] MEDS: ALBUTEROL SULFATE 2.5 MG/3 ML NPPB PRN ×2 (10:50→21:18)
[2018-10-07] MEDS: NICOTINE 7 MG/24 HR PATCH.TD24 TD SCH (11:02)
[2018-10-07 19:31] VITALS: BP 146/90
[2018-10-07] MEDS: QUETIAPINE 100MG TABLET PO SCH (20:31)
[2018-10-08 07:10] VITALS: BP 122/75
[2018-10-08] MEDS: BUPRENORPHINE/NALOXONE 2-0.5MG SL SCH ×2 (08:39→20:29)
[2018-10-08] MEDS: ALBUTEROL SULFATE 2.5 MG/3 ML NPPB PRN (08:50)
[2018-10-08] MEDS: NICOTINE 7 MG/24 HR PATCH.TD24 TD SCH (12:45)
[2018-10-08] MEDS: ALBUTEROL SULFATE 2.5 MG/3 ML NPPB SCH (18:30)
[2018-10-08 19:51] VITALS: BP 133/82
[2018-10-08] MEDS: QUETIAPINE 100MG TABLET PO SCH (20:29)
[2018-10-09] MEDS: ALBUTEROL SULFATE 2.5 MG/3 ML NPPB SCH ×2 (00:11→21:00)
[2018-10-09 07:10] VITALS: BP 120/81
[2018-10-09] MEDS: BUPRENORPHINE/NALOXONE 2-0.5MG SL SCH ×2 (09:21→20:26)
[2018-10-09] MEDS: NICOTINE 7 MG/24 HR PATCH.TD24 TD SCH (09:21)
[2018-10-09] MEDS: ACETAMINOPHEN 325 MG TABLET PO PRN (12:37)
[2018-10-09] MEDS ORDERED: NICO-485 TD (13:40)
[2018-10-09 19:38] VITALS: BP 142/78
[2018-10-09] MEDS: QUETIAPINE 100MG TABLET PO SCH (20:26)
[2018-10-10] MEDS: ALBUTEROL SULFATE 2.5 MG/3 ML NPPB PRN (02:01)
[2018-10-10 07:24] VITALS: BP 96/67
[2018-10-10] MEDS: ALBUTEROL SULFATE 2.5 MG/3 ML NPPB SCH (07:30)
[2018-10-10] MEDS: BUPRENORPHINE/NALOXONE 2-0.5MG SL SCH (08:05)
[2018-10-10] MEDS: NICOTINE 7 MG/24 HR PATCH.TD24 TD SCH (08:05)
== END 2018-10-10 08:55 | disposition home or self-care (01) | DRG 885 ==
LOC: 3E 21:35
PROVIDERS: ADMIT Psychiatry & Neurology Psychosomatic Medicine; ATTEND Psychiatry & Neurology Psychosomatic Medicine
DX: F31.64 Bipolar disorder, current episode mixed, severe, with psychotic features (principal); F11.20 Opioid dependence, uncomplicated; R45.851 Suicidal ideations; E78.5 Hyperlipidemia, unspecified; F17.210 Nicotine dependence, cigarettes, uncomplicated; F43.10 Post-traumatic stress disorder, unspecified; I10 Essential (primary) hypertension; J44.9 Chronic obstructive pulmonary disease, unspecified; M32.9 Systemic lupus erythematosus, unspecified; K21.9 Gastro-esophageal reflux disease without esophagitis; Z79.899 Other long term (current) drug therapy; Z83.3 Family history of diabetes mellitus; Z86.73 Personal history of transient ischemic attack (TIA), and cerebral infarction without residual deficits; Z88.8 Allergy status to other drugs, medicaments and biological substances; Z88.5 Allergy status to narcotic agent; Z91.041 Radiographic dye allergy status; Z90.49 Acquired absence of other specified parts of digestive tract
CPT/HCPCS: 36415; 84145; J0572; J7613; 71045; 80053; 80061; 83605; 83735; 84100; 85025; 93005; 94640; Q0162

== ENCOUNTER 2020-04-04 01:00 | Emergency (ER) | payer MEDICAID ==
[~2020-04-04] VITALS: Ht 165.1 cm; Wt 75.0 kg
[~2020-04-04 01:00] MED LIST changes: -ALBU6.7H INH; +ALBU6.7H8 INH; +CHOL200024 PO; +IPRA12.9 INH; +NICO-485 TD; +OMEP40CA42 PO; -OMEP40CA6 PO; +OXYB5TAB10 PO; -OXYB5TAB7 PO; +QUET25TA70 PO; +TRIH2TAB3 PO
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
--- NOTE | 2020-04-04 01:22 | NUR ---
ON CONT PULSE OX, SIDE RAILS UP, CALL TAYLOR IN REACH. PT STATES SHES GOING TO WATCH SOME TV. ERP AT BEDSIDE TO ORDER CT HEAD. WILL CONTINUE TO MONITOR.
--- NOTE | 2020-04-04 02:47 | NUR ---
BACK FROM [facility]YS, VSS, REQUESTING FOOD. WILL CONTINUE TO MONITOR. AIDET PROVIDED.
--- NOTE | 2020-04-04 03:12 | NUR ---
REQUESTED TECH TO CLEAN PT FACE/ BLOODY AREAS. PT DEMANDING HOT FOOD, INFORMED PT WE HAVE NO HOT FOOD, I GAVE HER CRACKERS, PEANUT BUTTER, JUICE/7 UP.
[2020-04-04 03:14] VITALS: BP 122/74
--- NOTE | 2020-04-04 03:27 | NUR ---
TECH TRIED CLEANING PT FACE, PT BECAME VERY UPSET, SWEARING AT TECH AND THEN STARTED SWINGING AT HIM. SHE THEN REFUSED ANYMORE CARE.
--- NOTE | 2020-04-04 04:09 | NUR ---
TAXI VOUCHER GIVEN. Addendum: 04/04/20 at 0421 by [email or web address] SECURITY CALLED TO MONITOR PT ON WAY OUT.
[2020-04-04] MEDS ORDERED: NEOSPORIN OINT. PKT 1 PACKET ONE (04:12)
== END 2020-04-04 04:27 | disposition home or self-care (01) ==
LOC: ED 02:29
DX: S02.2XXA Fracture of nasal bones, initial encounter for closed fracture (principal); F10.120 Alcohol abuse with intoxication, uncomplicated; J44.9 Chronic obstructive pulmonary disease, unspecified; I10 Essential (primary) hypertension; M32.9 Systemic lupus erythematosus, unspecified; Y00.XXXA Assault by blunt object, initial encounter; Y93.89 Activity, other specified; Y92.89 Other specified places as the place of occurrence of the external cause; Y99.8 Other external cause status; Y90.9 Presence of alcohol in blood, level not specified
CPT/HCPCS: 70450; 70486; 72125; 99285

== ENCOUNTER 2020-12-07 19:45 | Emergency (ER) | payer SELFPAY ==
[~2020-12-07] VITALS: Ht 162.6 cm; Wt 68.0 kg
[~2020-12-07 19:45] MED LIST changes: -OMEP40CA42 PO; +OMEP40CA8 PO; +QUET25TA2 PO; -QUET25TA70 PO; +SULF-23 PO; -SULF1TAB24 PO
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
[2020-12-07] MEDS ORDERED: ZIPRASIDONE 20 MG INJ IM ONE ×2 (20:19→20:30)
--- NOTE | 2020-12-07 20:24 | NUR ---
MD TO BEDSIDE AND EVALUATED PT AND ORDERS WRITTE. LAB TO BEDSIDE AND PT REFUSING ROUSTABOUT CREW PUSHER TO DRAW BLOOD. MD UPDATED, AND NEW ORDERS RECEIVED AND PT MEDICATED WITHOUT ISSUE.
--- NOTE | 2020-12-07 20:55 | NUR ---
PT REMAINS IN A HYPER ACTIVE STATE OF TALKING AND RANDOM WORDS NOT MAKING SENSE. PT IN BED, WITH SIDERAILS UP X2, AND CALL LIGHT WITHIN REACH. PT WITH SITTER OUTSIDE OF ROOM.
--- NOTE | 2020-12-07 21:04 | NUR ---
PT APPEARS DROWSY AND CLINICAL TRIAL HEAD CALLED TO ROOM TO DRAW SOME LABS.
--- NOTE | 2020-12-07 21:20 | NUR ---
PT CONTINUES TO BE BELIGERANT AND IS NOW THROWING THE URINE CUP AT THE SITTER. PT INFORMED SHE NEEDS TO NOT BE THROWING THINGS OR PUNCHING ATKINS OR WINDOWS. PT REMAINS IN ROOM, REMAINS ON AN L2K HOLD, AND BACK INTO BED WITH SIDERAILS UP X2.
--- NOTE | 2020-12-07 21:44 | NUR ---
PT CONTINUES TO REFUSE TREATMENT AND LAB DRAWS. UPDATED.
--- NOTE | 2020-12-07 22:33 | NUR ---
PT SLEEPING, NO CHANGE IN STATUS. ON O2 SAT PROBE, AND MD AWARE THAT PT CONTINUES TO REFUSE ALL CARE AND LAB DRAWS. WAITING ON MD TO GIVE ORDERS OR PLAN OF CARE.
--- NOTE | 2020-12-07 22:40 | NUR ---
LAB NOTE:ATTEMPTED TO DRAW PT X2, PT REFUSAL
--- NOTE | 2020-12-08 00:49 | NUR ---
BREAK RN: PT RESTING ON GUHUMAIRA, NAD, APPEARS COMFORTABLE EYES CLOSED, EVEN AND UNLABORED RESPIRATIONS. BED IN LOWEST, RAILS ENGAGED, ROOM SECURED, SITTER IN LINE OF SIGHT, ANITA.
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
--- NOTE | 2020-12-08 02:01 | NUR ---
PT DEMANDING FOOD AND SCRUBS TO LEAVE. PT ADVISED THAT THE RN WILL TRY AND FIND HER A SANDWICH AND THAT SHE NEEDS TO PUT HER CLOTHES ON THAT SHE HAS A FULL SET OF, AND IT'S TIME TO BE D/C'D. PT IS A&OX4, NO ACUTE DISTRESS, STOOD UP AND IS WALKING IN THE ROOM, GETTING CHANGED INTO HER CLOTHES. NO COMPLAINTS OF PAIN TO ANY PART OF THE BODY AT THIS TIME. F/U AND D/C INSTRUCTIONS GIVEN TO PT WITH RESOURCES SHEET, AND SHE V/U.
--- NOTE | 2020-12-08 02:26 | NUR ---
PT PROVIDED A SANDWICH AND CHIPS AND WATER, AND PT WAS GRATEFUL. PT GIVEN F/U AND D/C INSTRUCTIONS GIVEN TO PT AND SHE V/U. PT AMBULATORY AND GOT DRESSED AND DEPARTED ER AMBULATORY
== END 2020-12-08 02:28 | disposition home or self-care (01) ==
LOC: ED 23:17
DX: F23 Brief psychotic disorder (principal); F20.9 Schizophrenia, unspecified; F31.4 Bipolar disorder, current episode depressed, severe, without psychotic features; R00.0 Tachycardia, unspecified; I10 Essential (primary) hypertension; J44.9 Chronic obstructive pulmonary disease, unspecified
CPT/HCPCS: 93005; 96372; 99283; J3486

== ENCOUNTER 2021-01-22 11:09 | Emergency (ER) | payer MEDICAID ==
[~2021-01-22] VITALS: Ht 162.6 cm; Wt 71.3 kg
[2021-01-22 11:29] VITALS: BP 128/78
--- NOTE | 2021-01-22 11:46 | NUR ---
medical claims representative: Pt ambulatory to room from lobby at this time.
--- NOTE | 2021-01-22 13:22 | NUR ---
Patient given discharge instructions and Rx, they have confirmed that they understand the instructions. Patient ambulatory with steady gait. NAD, all questions answered appropriately, denies additional needs at this time. No personal belongings left in room after discharge.
== END 2021-01-22 13:23 | disposition home or self-care (01) ==
LOC: ED 11:22
DX: G20 Parkinson's disease (principal); Z76.0 Encounter for issue of repeat prescription; E78.5 Hyperlipidemia, unspecified; J44.9 Chronic obstructive pulmonary disease, unspecified; I10 Essential (primary) hypertension; F31.9 Bipolar disorder, unspecified; F20.9 Schizophrenia, unspecified; F17.210 Nicotine dependence, cigarettes, uncomplicated
CPT/HCPCS: 99281; 99406